=== PATIENT | female | born 1990 ===

== ENCOUNTER 2023-12-18 08:21 | Outpatient (CLI) | payer OTHER, SELFPAY ==
--- NOTE | ~2023-12-18 | MMUS_ITS ---
EXAMINATION: MM diagnostic dinorah RT w no, US breast RT complete HISTORY: Right breast lump TECHNIQUE: Additional 3-D tomosynthesis images of the right breast were performed and synthetic 2-D i mages were generated. CAD analysis was submitted and interpreted. High resolution complete right jose st ultrasound was performed. COMPARISON: No prior studies for comparison. BREAST PARENCHYMAL COMPOSITION: Dense: The breasts are extremely dense, which lowers the sensitivity of mammography. FINDINGS: MAMMOGRAPHIC FINDINGS: There are no suspicious masses, calcifications or architectural distortion in the right breast to sug gest malignancy. There are benign calcifications. ULTRASOUND: Complete US of all 4 quadrants of the right breast/s and retroareolar region was reviewed. At 10-11 o 'clock in the area of palpable concern, 9 cm from the nipple there is a cluster of cysts, largest blayne suring 1.3 cm. At 11:00, 7 cm from the nipple there is an oval hypoechoic mass measuring 5 mm with pa rallel orientation, posterior acoustic enhancement and no internal vascularity, likely complicated cy sts. 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 There are multiple add itional scattered cysts of the right breast. At 1:00, 4.5 cm from the nipple there is a cluster of mi crocysts measuring 1 cm in aggregate. IMPRESSION: 1. Probable benign complicated cysts of the right breast at 11:00, 7 cm from the nipple and 11:00, 4 cm from the nipple. Multiple additional benign cysts are present in the right breast. 2. Recommend 6 month follow-up Limited right breast ultrasound BI-RADS category 3, probably benign findings. Reviewed, dictated and finalized at location B. IMPRESSION: 1. Probable benign complicated cysts of the right breast at 11:00, 7 cm from th e nipple and 11:00, 4 cm from the nipple. Multiple additional benign cysts are present in the right breast. 2. Recommend 6 month follow-up Limited right breast ultrasound BI-RADS category 3, probably benign findings.
== END 2023-12-18 08:22 | disposition home or self-care (01) ==
LOC: MICIMG 08:23
PROVIDERS: PCP Hospitalist; Visit Provider Nurse Practitioner Women's Health
DX: N63.10 Unspecified lump in the right breast, unspecified quadrant (principal); R92.8 Other abnormal and inconclusive findings on diagnostic imaging of breast
CPT/HCPCS: 76641; 77061; 77065; G0279